=== PATIENT | male | born 1975 | race Caucasian/White ===

== ENCOUNTER 2024-05-12 15:39 | Outpatient (CLI) | payer OTHER, SELFPAY ==
--- NOTE | ~2024-05-12 | CT_ITS ---
CT lumbar spine wo con Ordering provider: Ramona Jha History: 49 years Male with . Pars defect of lumbar spine . Comparison: None. Technique: CT lumbar spine without contrast. Automated exposure control and iterative reconstruction technique were employed. The dose-length product was 853.75 mGy-cm. FINDINGS: VERTEBRAE: Normal height and alignment. No subluxation or visible acute fracture. Spondylolysis seen in the right side at the level of L5-S1. DISC SPACES: Degenerative disc disease at the level of L4-L5. T12-L1: No stenosis. L1-L2: No stenosis. L2-L3: No stenosis. Mild diffuse disc bulge. L3-L4: No stenosis. L4-L5: Moderate spinal canal stenosis secondary to broad based disc bulge, facet arthropathy, and li gamentum flavum hypertrophy. Osteophyte formation in the right and left facet Joint. Bilateral neural foraminal narrowing with nerve root compression on the right side. Defect seen in the spinous process. L5-S1: No stenosis. Mild diffuse disc bulge. Left nerve root compression by osteophyte from the face t joint. 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 Right sacroiliitis. IMPRESSION: No acute osseous abnormality. Degenerative disc disease at the level of L4-L5. Multilevel disc bulges with variable degrees of inte rvertebral foraminal narrowing. Reviewed, dictated and finalized at location A. SPLANT REGISTERED NURSE IMPRESSION: No acute osseous abnormality. Degenerative disc disease at the level of L4-L5. Multilevel disc bulges with va riable degrees of intervertebral foraminal narrowing.
== END 2024-05-12 15:40 | disposition home or self-care (01) ==
LOC: MICIMG 15:41
DX: M51.369 Other intervertebral disc degeneration, lumbar region without mention of lumbar back pain or lower extremity pain (principal); M51.379 Other intervertebral disc degeneration, lumbosacral region without mention of lumbar back pain or lower extremity pain; M54.41 Lumbago with sciatica, right side; G89.29 Other chronic pain
CPT/HCPCS: 72131